=== PATIENT | female | born 1950 | race Caucasian/White ===

== ENCOUNTER 2018-03-12 14:10 | Outpatient (CLI) | payer MEDICARE, MEDICAID | END 2018-03-12 14:11 | disposition home or self-care (01) | LOC: BICMAMMO 14:10 | PROVIDERS: ATTEND Family Medicine | DX: Z12.31 Encounter for screening mammogram for malignant neoplasm of breast (principal) | CPT/HCPCS: 77063; 77067 ==

== ENCOUNTER 2018-09-09 10:48 | Outpatient (CLI) | payer MEDICARE, MEDICAID ==
[~2018-09-09 10:48] MED LIST: Gadobenate Dimeglumine 529 MG/1 ML (20ML VIAL) ONE
--- NOTE | 2018-09-09 13:49 | MRI ---
MRI ABDOMEN WITH AND WITHOUT CONTRAST: HISTORY: Cirrhosis of the liver. Adrenal myelolipoma. TECHNIQUE: Multiplanar, multisequence MR images were obtained of the abdomen with and without IV contrast. FINDINGS: The liver demonstrates a slightly nodular contour, consistent with a diagnosis of cirrhosis. There i s loss of signal in the liver on [id number] images, consistent with diffuse fatty infiltration of t he liver. There is an 8 mm focus of high T2 signal in the right hepatic lobe, near the dome. This i s difficult to visualize secondary to respiratory motion artifact. On the post contrast images, ther e appears to be enhancement in this region. This is most likely consistent with a hemangioma. When compared to the prior examinations, this appears to have slightly decreased in size. No other hepati c lesions are seen. There is a fat-containing left adrenal mass, measuring 5.7 cm in size, consistent with an adrenal mye lolipoma. There is subcentimeter foci of high T2 signal in the left kidney, which are nonenhancing a nd which represent cysts. The gallbladder, right kidney, right adrenal gland, spleen, and pancreas a re unremarkable. No abdominal adenopathy is seen. No marrow signal abnormality is present. IMPRESSION: 1. Fatty liver. 2. Cirrhosis. 3. Likely small hemangioma in the right lobe of the liver. 4. Left adrenal myelolipoma. 5. Small left renal cysts. POS: C
== END 2018-09-09 10:49 | disposition home or self-care (01) ==
LOC: BICMRI 10:48
PROVIDERS: ATTEND Family Medicine
DX: K74.60 Unspecified cirrhosis of liver (principal); K76.0 Fatty (change of) liver, not elsewhere classified; D17.79 Benign lipomatous neoplasm of other sites; N28.1 Cyst of kidney, acquired
CPT/HCPCS: 74183; A9577

== ENCOUNTER 2019-04-12 07:17 | Outpatient (CLI) | payer MEDICARE, MEDICAID ==
--- NOTE | 2019-04-12 08:06 | ULT ---
HEPATIC DOPPLER ULTRASOUND: Date: 04/12/2019 COMPARISON: None. HISTORY: Cirrhosis. TECHNIQUE: Multiplanar grayscale sonographic imaging of the upper abdomen obtained. Hepatic and splen ic vasculature is assessed with color flow and spectral analysis/Doppler interrogation. FINDINGS: The imaged pancreas is unremarkable. The tail is obscured by bowel gas. The hepatic parenchyma is heterogeneous and echogenic, consistent with hepatocellular disease. No dis crete focal liver lesion or evidence of intrahepatic biliary dilatation. The main portal vein is patent and demonstrates normal directional flow. Imaged IVC and aorta appear unremarkable. The left hepatic vein, left portal vein, middle hepatic vei n, right hepatic vein, main portal vein, and right portal vein are patent and demonstrate normal directional flow. The hepatic artery is patent. There is shadowing in the region of the gallbladder suggesting a gallbladder filled with stones. The common bile duct measures 5 mm, within normal limits. The regional sales leader reports a negative Campoverde's sign. The spleen measures 12.7 cm, within normal limits. Splenic artery and vein are patent and demonstrate appropriate waveforms. IMPRESSION: Hepatic and splenic vasculature is patent. Cholelithiasis. No acute findings. Transcribed Date/Time: 04/12/2019 8:58 AM
== END 2019-04-12 07:18 | disposition home or self-care (01) ==
LOC: SCSULT 07:17
PROVIDERS: ATTEND Internal Medicine Gastroenterology
DX: K74.60 Unspecified cirrhosis of liver (principal); Z12.11 Encounter for screening for malignant neoplasm of colon; F79 Unspecified intellectual disabilities; K80.20 Calculus of gallbladder without cholecystitis without obstruction
CPT/HCPCS: 76705

== ENCOUNTER 2020-06-19 11:36 | Emergency (ER) | payer MEDICARE, MEDICAID ==
[2020-06-19 22:50] LABS: SARS-CoV-2 MS2 Positive; SARS-CoV-2 N Gene Negative; SARS-CoV-2 S Gene Negative; SARS-CoV-2 by NAA Not Detected (NotDetected); SARS-CoV-2 orf1ab Negative
== END 2020-06-19 12:15 | disposition home or self-care (01) ==
LOC: ERS 11:36
DX: Z20.828 Contact with and (suspected) exposure to other viral communicable diseases (principal); E11.9 Type 2 diabetes mellitus without complications
CPT/HCPCS: 99283; U0003; 87635

== ENCOUNTER 2020-08-16 12:42 | Emergency (ER) | payer MEDICARE, MEDICAID ==
[2020-08-16 17:26] LABS: SARS-CoV-2 MS2 Positive; SARS-CoV-2 N Gene Negative; SARS-CoV-2 S Gene Negative; SARS-CoV-2 by NAA Not Detected (NotDetected); SARS-CoV-2 orf1ab Negative
== END 2020-08-16 13:20 | disposition home or self-care (01) ==
LOC: ERS 12:42
DX: Z20.822 Contact with and (suspected) exposure to COVID-19 (principal); E11.9 Type 2 diabetes mellitus without complications
CPT/HCPCS: U0003; U0005; 87635; 99283

== ENCOUNTER 2021-07-19 09:59 | Outpatient (CLI) | payer MEDICARE, MEDICAID | END 2021-07-19 10:00 | disposition home or self-care (01) | LOC: BICMAMMO 09:59 | PROVIDERS: ATTEND Family Medicine | DX: Z12.31 Encounter for screening mammogram for malignant neoplasm of breast (principal) | CPT/HCPCS: 77063; 77067 ==

== ENCOUNTER 2022-11-14 12:38 | Outpatient (CLI) | payer MEDICARE, MEDICAID | END 2022-11-14 12:39 | disposition home or self-care (01) | LOC: SCSMRI 12:38 | PROVIDERS: ATTEND Internal Medicine Gastroenterology | DX: K74.60 Unspecified cirrhosis of liver (principal); K76.0 Fatty (change of) liver, not elsewhere classified; N13.4 Hydroureter; N13.30 Unspecified hydronephrosis; D17.79 Benign lipomatous neoplasm of other sites; Z86.010 Personal history of colon polyps | CPT/HCPCS: 74183; 82565 ==

== ENCOUNTER 2022-12-18 09:51 | Outpatient (CLI) | payer MEDICARE, MEDICAID ==
[2022-12-18] MEDS ORDERED: Magnevist 469MG/ML 20 ML VIAL ONE (10:41)
== END 2022-12-18 09:52 | disposition home or self-care (01) ==
LOC: MRI 09:51
PROVIDERS: ATTEND Student in an Organized Health Care Education/Training Program
DX: R41.3 Other amnesia (principal)
CPT/HCPCS: 70553; A9579

== ENCOUNTER 2023-04-10 14:56 | Outpatient (CLI) | payer MEDICARE, MEDICAID | END 2023-04-10 14:57 | disposition home or self-care (01) | LOC: ULT 14:56 | PROVIDERS: ATTEND Urology | DX: N20.0 Calculus of kidney (principal); R93.5 Abnormal findings on diagnostic imaging of other abdominal regions, including retroperitoneum; D35.02 Benign neoplasm of left adrenal gland; Z98.890 Other specified postprocedural states | CPT/HCPCS: 74018; 76770 ==

== ENCOUNTER 2024-06-08 13:30 | Outpatient (CLI) | payer MEDICARE, MEDICAID | END 2024-06-08 13:31 | disposition home or self-care (01) | LOC: BICULT 13:30 | PROVIDERS: ATTEND Urology | DX: N20.0 Calculus of kidney (principal); D35.00 Benign neoplasm of unspecified adrenal gland; E66.01 Morbid (severe) obesity due to excess calories; Q61.01 Congenital single renal cyst; Z98.890 Other specified postprocedural states | CPT/HCPCS: 74018; 76770 ==

== ENCOUNTER 2025-05-09 12:01 | Outpatient (CLI) | payer MEDICARE, MEDICAID | END 2025-05-09 12:02 | disposition home or self-care (01) | LOC: ULT 12:01 | PROVIDERS: ATTEND Urology | DX: N20.0 Calculus of kidney (principal); N28.9 Disorder of kidney and ureter, unspecified; R93.422 Abnormal radiologic findings on diagnostic imaging of left kidney; N28.1 Cyst of kidney, acquired | CPT/HCPCS: 76770 ==